=== PATIENT | female | born 1975 | race Caucasian/White ===

== ENCOUNTER → 2019-04-23 16:05 | Outpatient (CLI) | payer OTHER, MEDICAID, SELFPAY ==
--- NOTE | 2019-04-23 | DI.US.S_ITS ---
PROCEDURE: US THYROID INDICATIONS: NONTOXIC GOITER TECHNIQUE: Real-time scanning was performed of the thyroid gland, with image documentation. COMPARISON: None. FINDINGS: Right: Thyroid lobe measures 4.9 x 1.6 x 2.0 cm, and is homogeneous in echotexture. Left: Thyroid lobe measures 5.4 x 1.6 x 2.0 cm, and is homogenous in echotexture. Isthmus: 4 mm thick. Nodule number: 1 Location: Left mid lobe Size: 0.4 x 0.3 x 0.4 cm. Composition: Cystic Echogenicity: hypoechoic Shape: wider than tall. Margins: Smooth Echogenic foci: None Total points: 2 ACR TI-RADS category: Not suspicious IMPRESSION: Sub-5 mm left thyroid cyst as above. ACR TI-RADS definitions and recommendations: TI-RADS 1 (benign): 0 points. FNA not needed. TI-RADS 2 (not suspicious): 2 points. FNA not needed. TI-RADS 3 (mildly suspicious): 3 points. * FNA if 2.5 cm or larger, follow up if 1.5 cm or larger (at 1, 3, and 5 years). TI-RADS 4 (moderately suspicious): 4-6 points. * FNA if 1.5 cm or larger, follow up if 1 cm or larger (at 1, 2, 3, and 5 years). TI-RADS 5 (highly suspicious): 7 points or more. * FNA if 1 cm or larger, follow up if 0.5 cm or larger (every year for 5 years). Dictated by: Giovanny Mahoney M.D. on 04/24/2019 at 16:46 Approved by: Giovanny Mahoney M.D. on 04/24/2019 at 16:50
== END ==
PROVIDERS: Visit Provider Family Medicine
DX: E04.1 Nontoxic single thyroid nodule (principal); R61 Generalized hyperhidrosis
CPT/HCPCS: 76536

== ENCOUNTER 2024-01-15 10:58 | Emergency (ER) | payer OTHER, MEDICAID, SELFPAY ==
[2024-01-15] VITALS (8 sets, daily range): BP systolic 138–159; BP diastolic 87–92; PULSE 82–95; RESP 14; TEMP 36.8; O2SAT 93–99; BMI 29.8
--- NOTE | 2024-01-15 11:45 | ED.NAVMDI ---
HPI - Nausea/Vomiting/Diarrhea General Chief complaint: Nausea/Vomiting/Diarrhea Stated complaint: sent by pcp for ct Time Seen by Provider: 01/15/24 11:45 Source: patient Mode of arrival: Ambulatory History of Present Illness HPI Narrative: 48-year-old woman with a history of hypertension, anxiety, in the past there was a question of some type of colitis but she does not have a formal diagnosis, most recent upper and lower endoscopies were in 2014 and were found to be unremarkable. For the last 2 weeks she has been having nausea vomiting and diarrhea. Initially was having fevers the fevers have since resolved. The diarrhea continues every time she has anything to eat. She is becoming increasingly weak. She did have stool studies done that showed no C diff, Campylobacter or E coli. She has not noting blood in her stools. Was seen on [facility] today by her primary provider who felt a CT scan would be the next appropriate step and she is sent to the ER to facilitate that. Related Data Home Medications Medication Instructions Recorded Confirmed escitalopram oxalate 10 mg tablet 10 mg PO DAILY 12/31/20 02/16/21 ciprofloxacin HCl 500 mg tablet 500 mg PO BID 01/15/24 01/15/24 metronidazole 500 mg tablet 500 mg PO 3XD 01/15/24 01/15/24 Previous Rx's Medication Instructions Recorded lisinopril 20 mg tablet 20 mg PO DAILY #90 tabs 02/16/21 Allergies Allergy/AdvReac Type Severity Reaction Status Date / Time Sulfa (Sulfonamide Allergy HIVES Verified 01/15/24 11:37 Antibiotics) Review of Systems Review of Systems Narrative: Pertinent positive and negative findings as per HPI Patient History Medical History (Updated 01/15/24 @ 17:39 by Angie Alaniz MD) Dyslipidemia Hypertension Anxiety Social History Smoking Status: Never smoker Smoking Status: Never smoker alcohol intake frequency: 0-2 drinks per day Substance Use Type: does not use Exam Initial Vital Signs Initial Vital Signs: Vital Signs Temperature 98.3 F 01/15/24 11:31 Pulse Rate 94 H 01/15/24 11:31 Respiratory Rate 14 01/15/24 11:31 Blood Pressure 138/92 H 01/15/24 11:31 Pulse Oximetry 99 01/15/24 11:31 Oxygen Delivery Method Room Air 01/15/24 11:31 General: Healthy appearing, in no acute distress. Able to give a complete and coherent history. Well-nourished well-developed HEENT: Slightly dry mucous membranes, normal sclera with reactive pupils, Respiratory: Lungs are clear to auscultation, no wheezing no rales no rhonchi. Full and symmetrical air movement Cardiac: Regular rate and rhythm no murmurs no bruits Abdomen: Soft, nontender, good bowel tones, no flank pain Skin: Warm and dry, no rashes Neurologic: Grossly neurologically intact with no obvious asymmetries or abnormalities Extremities: No trauma, well perfused Psych: Cooperative, appropriate insight and affect Course Orders Ordered: ED Orders 01/15/24 12:45 Complete Blood Count AUTO DIFF Stat Comprehensive Metabolic Panel Stat Lipase Stat 01/15/24 13:53 CT abdomen pelvis w con Stat 01/15/24 14:05 GI Panel (Film Array) Stat Ondansetron HCl (Ondansetron 4 Mg Odt) 4 mg PO NOW PRN PRN Reason: Nausea And Vomiting Ondansetron HCl (Ondansetron 4 Mg/2 Ml Inj) 4 mg IV NOW PRN PRN Reason: Nausea And Vomiting Discontinued Medications Sodium Chloride (Normal Saline 0.9%) 1,000 mls @ 1,000 mls/hr IV BOLUS ONE Stop: 01/15/24 12:37 Last Infusion: 01/15/24 13:54 Dose: Infused Documented By: Admin: 01/15/24 12:52 Dose: 1,000 mls/hr Documented By: BEATRICE Vital Signs Vital signs: Vital Signs - 8 hr 01/15/24 11:31 01/15/24 13:33 01/15/24 13:33 Temperature 98.3 F Pulse Rate 94 H 83 Respiratory Rate 14 Blood Pressure 138/92 H 159/89 H Pulse Oximetry 99 98 Oxygen Delivery Method Room Air 01/15/24 15:00 01/15/24 15:32 01/15/24 16:00 Temperature Pulse Rate 88 95 H 84 Respiratory Rate Blood Pressure Pulse Oximetry 96 93 96 Oxygen Delivery Method 01/15/24 16:30 01/15/24 17:00 01/15/24 17:29 Temperature Pulse Rate 82 83 82 Respiratory Rate Blood Pressure Pulse Oximetry 96 97 98 Oxygen Delivery Method Room Air Room Air 04/22/24 17:29 Temperature Pulse Rate Respiratory Rate Blood Pressure 143/87 H Pulse Oximetry Oxygen Delivery Method MDM - Nausea/Vomiting/Diarrhea Lab Data 01/15/24 12:45 01/15/24 12:45 Labs: Lab Results 01/15/24 Range/Units 12:45 WBC 9.4 (4.5-11.0) X10^3/uL RBC 4.42 (4.0-5.2) X10^6/uL Hgb 14.3 (12.0-16.0) g/dL Hct 41.3 (36-46) % MCV 93.6 (80-100) fL MCH 32.3 (26-34) PG MCHC 34.6 (30-36) % RDW 12.7 (11.6-14.8) % Plt Count 337 (150-400) X10^3/uL Neut % (Auto) 58.6 (50-75) % Lymph % (Auto) 28.0 (25-40) % [place] % (Auto) 9.1 (3-14) % Eos % (Auto) 3.6 (2-4) % Baso % (Auto) 0.7 (0-2) % Neut # (Auto) 5500 (9373-4097) /uL Lymph # (Auto) 2600 (7511-6683) /uL [place] # (Auto) 900 (0-900) /uL Eos # (Auto) 300 (0-450) /uL Baso # (Auto) 100 (0-100) /uL Sodium 139 (137-145) mmol/L Potassium 3.2 L (3.4-5.1) mmol/L Chloride 108 H (98-107) mmol/L Carbon Dioxide 28 (22-32) mmol/L BUN 13 (7-17) mg/dL Creatinine 0.48 L (0.52-1.04) mg/dL Estimated GFR > 60 (>60) mL/min BUN/Creatinine Ratio 27.1 H (6-22) Glucose 90 (70-100) mg/dL Calcium 8.9 (8.4-10.2) mg/dL Total Bilirubin 0.3 (0.2-1.3) mg/dL AST 27 (14-36) IU/L ALT 13 (<35) IU/L Alkaline Phosphatase 70 (38-126) U/L Total Protein 6.7 (6.3-8.2) g/dL Albumin 4.0 (3.5-5.0) g/dL Globulin 2.7 (1.7-4.1) g/dL Albumin/Globulin Ratio 1.5 (1.0-2.8) Lipase 82 (23-300) U/L Imaging Data CT scan - abdomen/pelvis: Radiologist's Impression: PROCEDURE: CT ABDOMEN PELVIS W CON INDICATIONS: persistent diarrhea TECHNIQUE: After the administration of intravenous contrast, axial sections acquired from the lung bases to the pubic symphysis. Coronal and sagittal reformats were performed. For radiation dose reduction, the following was used: automated exposure control, adjustment of mA and/or kV according to patient size. COMPARISON: None. FINDINGS: Image quality: Diagnostic. Lower Chest: No significant findings. ABDOMEN: Liver: No solid mass. Liver measures 20.8 cm with mild steatosis. Gallbladder: No radiopaque gallstones or wall thickening. Biliary ducts: No biliary dilation. Pancreas: No ductal dilation. Spleen: Size is within normal limits. Adrenal Glands: No adrenal nodules. Kidneys and Ureters: No hydronephrosis. No solid mass. No complex renal cystic lesion which requires follow up. Stomach and Bowel: Normal colonic caliber, without significant wall thickening. Peritoneum: No abnormal intraperitoneal fluid. No free air. Ventral Wall: No significant ventral hernia. Abdominal Nodes: No retroperitoneal or mesenteric adenopathy by size criteria. Vessels: Aorta and inferior vena cava are normal in size. PELVIS: Pelvic Organs: Unremarkable. Bladder: No bladder wall thickening, accounting for underdistention. Pelvic Nodes: No enlarged lymph nodes. Miscellaneous: No inguinal hernias are seen. Bones: No aggressive osseous abnormality. IMPRESSION: No visualized acute intra-abdominal or pelvic process. Dictated by: Nely Montana M.D. on 01/15/2024 at 16:22 MDM Narrative Medical decision making narrative: CC: 2+ weeks of diarrhea starting initially with vomiting and fever Data collected from: patient Social determinants of health that may influence the patients condition: Medical records reviewed: Notes from her primary care office on [facility] are reviewed with discussion regarding current events. Initial stool panel for Campylobacter, Shigella, E coli and C diff is unremarkable Differential considered: Viral syndrome, irritable bowel syndrome, colitis Exam documented above, pertinent findings include: 48-year-old woman who is having continued diarrhea every time she eats. She does not have an acute abdomen on physical exam. Lab Test results independently reviewed as above. Pertinent findings: CBC: White count is unremarkable with no leukocytosis and no anemia Metabolic panel: Potassium low at 3.2, appropriate creatinine, no liver enzyme abnormalities Imaging studies independently reviewed: CT scan does not have any acute findings, specifically no evidence colitis Treatments: A L of fluid is given Discussion: Findings reviewed with the patient. She is re-evaluated. At this point there is no evidence of acute colitis, bowel obstruction, obvious surgical abnormality or indication for additional blood work or hospitalization at this time. Renal function and electrolytes are appropriate despite her 2 weeks of diarrhea. Currently full PCR stool panel is pending and patient does have access to her online medical records to follow up with this and does not need to stay in the emergency department for results. She will follow up with her primary care physician and she is safe for discharge home Discharge Plan Departure Patient Disposition: Home Clinical Impression: Diarrhea Qualifiers: Diarrhea type: unspecified type Qualified Code(s): R19.7 - Diarrhea, unspecified Instructions: DI for Diarrhea and Traveler's Diarrhea -- Adult Activity Restrictions/Additional Instructions: Thank you for coming in today At this time currently you are not showing any signs of electrolyte abnormalities, kidney or liver abnormalities or signs of acute infection. Your CT scan does not show any evidence of colitis or other abnormality that would require additional intervention or consultation. Currently your stool panel is in the lab and should be available within the next number of hours and at least by tomorrow morning. You can look this up in your medical record if you have questions I am available in the emergency department during the day tomorrow or you can also contact your primary care doctor. At this time supportive care which means fluids, simple foods and probiotics are the appropriate treatment for your continued diarrhea If you find that you are getting worse or develop any new symptoms, please feel free to return to the emergency department for further evaluation. Prescriptions: No Action metronidazole 500 mg tablet 500 mg PO 3XD Rx Instructions: started 01/09 ciprofloxacin HCl 500 mg tablet 500 mg PO BID Rx Instructions: started 01/09 escitalopram oxalate 10 mg tablet 10 mg PO DAILY lisinopril 20 mg tablet 20 mg PO DAILY Qty: 90 1RF Referrals: Carey Cifuentes MD [Primary Care Provider] - Stand Alone Forms: Patient Portal/API
[2024-01-15] MEDS: SODIUM CHLORIDE 0.9% 1,000 ML 1000 ML IV (12:52)
[2024-01-15 12:56] LABS: Add Manual Diff / Slide Review NO; Basophils Absolute Auto 100 /uL (0-100); Basophils Percent Auto 0.7 % (0-2); Eosinophils Absolute Auto 300 /uL (0-450); Eosinophils Percent Auto 3.6 % (2-4); Hematocrit 41.3 % (36-46); Hemoglobin 14.3 g/dL (12.0-16.0); Lymphocytes Absolute Auto 2600 /uL (1100-4500); Mean Corpuscular HGB Conc 34.6 % (30-36); Mean Corpuscular Hemoglobin 32.3 PG (26-34); Mean Corpuscular Volume 93.6 fL (80-100); Monocytes Absolute Auto 900 /uL (0-900); Monocytes Percent Auto 9.1 % (3-14); Neutrophils Absolute Auto 5500 /uL (1500-7000); Neutrophils Percent Auto 58.6 % (50-75); Platelet Count 337 X10^3/uL (150-400); Red Blood Cell Count 4.42 X10^6/uL (4.0-5.2); Red Cell Distribution Width 12.7 % (11.6-14.8); White Blood Cell Count 9.4 X10^3/uL (4.5-11.0)
[2024-01-15 13:07] LABS: Alanine Aminotransferase 13 IU/L (<35); Albumin Globulin Ratio 1.5 (1.0-2.8); Alkaline Phosphatase 70 U/L (38-126); Aspartate Aminotransferase 27 IU/L (14-36); BUN Creatinine Ratio 27.1 (6-22); Bilirubin Total 0.3 mg/dL (0.2-1.3); Blood Urea Nitrogen 13 mg/dL (7-17); Calcium 8.9 mg/dL (8.4-10.2); Carbon Dioxide 28 mmol/L (22-32); Chloride 108 mmol/L (98-107); Estimated Glomerular Filt Rate > 60 mL/min (>60); Globulin 2.7 g/dL (1.7-4.1); Glucose 90 mg/dL (70-100); HEMOLYSIS < 15 (0-50); Lipase 82 U/L (23-300); Potassium 3.2 mmol/L (3.4-5.1); Sodium 139 mmol/L (137-145); Total Protein 6.7 g/dL (6.3-8.2)
--- NOTE | 2024-01-15 13:53 | DI.CT.S_ITS ---
PROCEDURE: CT ABDOMEN PELVIS W CON INDICATIONS: persistent diarrhea TECHNIQUE: After the administration of intravenous contrast, axial sections acquired from the lung bases to the pubic symphysis. Coronal and sagittal reformats were performed. For radiation dose reduction, the following was used: automated exposure control, adjustment of mA and/or kV according to patient size. COMPARISON: None. FINDINGS: Image quality: Diagnostic. Lower Chest: No significant findings. ABDOMEN: Liver: No solid mass. Liver measures 20.8 cm with mild steatosis. Gallbladder: No radiopaque gallstones or wall thickening. Biliary ducts: No biliary dilation. Pancreas: No ductal dilation. Spleen: Size is within normal limits. Adrenal Glands: No adrenal nodules. Kidneys and Ureters: No hydronephrosis. No solid mass. No complex renal cystic lesion which requires follow up. Stomach and Bowel: Normal colonic caliber, without significant wall thickening. Peritoneum: No abnormal intraperitoneal fluid. No free air. Ventral Wall: No significant ventral hernia. Abdominal Nodes: No retroperitoneal or mesenteric adenopathy by size criteria. Vessels: Aorta and inferior vena cava are normal in size. PELVIS: Pelvic Organs: Unremarkable. Bladder: No bladder wall thickening, accounting for underdistention. Pelvic Nodes: No enlarged lymph nodes. Miscellaneous: No inguinal hernias are seen. Bones: No aggressive osseous abnormality. IMPRESSION: No visualized acute intra-abdominal or pelvic process. Dictated by: Nely Montana M.D. on 01/15/2024 at 16:22 Approved by: Nely Montana M.D. on 01/15/2024 at 16:23
[2024-01-15 18:02] LABS: Adenovirus F 40/41 Not Detected (Not Detect); Astrovirus Not Detected (Not Detect); Campylobacter Not Detected (Not Detect); Clostridium difficile toxin AB Not Detected (Not Detect); Cryptosporidium Not Detected (Not Detect); Cyclospora cayetanensis Not Detected (Not Detect); Entamoeba histolytica Not Detected (Not Detect); Enteroaggregative E.coli Not Detected (Not Detect); Enteropathogenic E.coli Not Detected (Not Detect); Enterotoxigenic E.coli It/st Not Detected (Not Detect); Giardia lamblia Not Detected (Not Detect); Norovirus GI/GII Detected (Not Detect); Plesiomonsa shigelloides Not Detected (Not Detect); Rotavirus A Not Detected (Not Detect); Salmonella Not Detected (Not Detect); Sapovirus Detected (Not Detect); Shiga-like toxin-prod E.coli Not Detected (Not Detect); Shigella/Enteroinvasive E.coli Not Detected (Not Detect); Vibrio Not Detected (Not Detect); Vibrio cholerae Not Detected (Not Detect); Yersinia enterocolitica Not Detected (Not Detect)
== END 2024-01-15 17:54 | disposition home or self-care (01) ==
PROVIDERS: Emergency Provider Emergency Medicine; PCP Family Medicine
DX: R19.7 Diarrhea, unspecified (principal)
CPT/HCPCS: 36415; 74177; 80053; 83690; 85025; 87507; 96360; 99284; Q9967